=== PATIENT | female | born 1965 | race Caucasian/White ===

== ENCOUNTER 2022-02-14 16:26 | Emergency (ER) | payer BC, SELFPAY ==
[2022-02-14 17:24] VITALS: BP 132/89; PULSE 77; RESP 18; TEMP 36.1; O2SAT 99; BMI 16.4
--- NOTE | 2022-02-14 17:26 | CRLHL7_ITS ---
For Patients: As a result of the Cures Act, medical imaging exams and procedure reports are released immediately into your electronic medical record. You may view this report before your referring provider. If you have questions, please contact your health care provider. Indication: Left 2nd toe injury Comparison: None available. Technique: AP and lateral views left 2nd digit were obtained. Findings: There is a minimally displaced fracture of the distal aspect of the proximal 2nd phalanx. The joint spaces are grossly preserved. There is mild fusiform soft tissue swelling. Impression: Minimally displaced fracture of the distal aspect of the proximal 2nd phalanx Dictated by Harrison Villaseñor MD @ 02/14/2022 6:12:22 PM (Electronically Signed)
--- NOTE | 2022-02-14 19:28 | ED_ITS ---
HPI - Trauma General Time Seen by Provider: 19:00 Date Seen: 02/14/22 Chief Complaint: Extremity Pain/Injury, Lower Stated Complaint: Broken Toe Time Seen by Provider: 02/14/22 18:40 Source: patient, RN notes reviewed and old records reviewed Mode of arrival: ambulatory Limitations: no limitations History of Present Illness HPI narrative: Patient is a very pleasant 56-year-old female who presents to the emergency room after injuring her good left 2nd toe. Patient states that she wanted to hurry out to the [facility] and was caring a cooler and wearing flip-flops and her flip-flop turned and she somehow got her 2nd toe caught. She notes initially the 2nd toe seemed to be bending toward the great toe but has straightened out somewhat. She states that she feels like it is sticking up from her foot. She describes her pain as significant and is worsened by any sort of movement or touching of the toe. She points to the PIP joint of the 2nd toe as area of greatest pain but the pain does radiate onto the dorsum of her foot. She denies any other injury. Related Data Home Medications Medication Instructions Recorded Confirmed methimazole 5 mg tablet mg 02/14/22 Allergies Allergy/AdvReac Type Severity Reaction Status Date / Time morphine Allergy Verified 02/14/22 17:23 Sulfa (Sulfonamide Allergy Verified 02/14/22 17:23 Antibiotics) augmentin Allergy Uncoded 02/14/22 17:23 Review of Systems Narrative: Patient denies any other injury or prodromal symptoms associated with the stumble in the flip-flops. Exam Const: Vital Signs, click to edit/add: Vital Signs - 24 hr 02/14/22 17:24 Temperature 96.9 F L Pulse Rate [Right Pulse Oximeter] 77 Respiratory Rate 18 Blood Pressure [Ri ght Upper Arm] 132/89 Pulse Oximetry 99 Patient is alert and oriented. She does appear to be in discomfort. She is breathing normally and does not appear to have suffered any other injury to her head neck upper extremities. She has a well-healed scar over her right shoulder. Examination of her left foot shows that her 2nd toe is somewhat ed ematous with some ecchymosis mainly on the plantar surface. There is some slight deviation anteriorly and to the midline or medially. Sensation is fully intact. There is no evidence of skin compromise. No wounds of the ankle knee or legs. Course Course Hospital Course: Patient appears to have fracture of the proximal phalanx 2nd toe. I did consult with dab from Orthopedics who does suggest digital block with reduction of the fracture. I speak with the patient and obtained informed consent after discussing risks and benefits. Reevaluation(s) Reevaluation #1: I did receive informed consent for reduction of slightly displaced 2nd toe fract ure. Patient tolerated procedure well. 1% lidocaine was used to numb base of 2nd toe on the left after alcohol cleansing. Digital block accomplished after initial numbing of the skin. Patient achieved anesthesia. Traction was placed on the 2nd toe and toe was realigned with good outcome. Toe was antoine-taped. Vital Signs Vital signs: Initial Vital Signs Temperature 96.9 F L 02/14/22 17:24 Temperature Source Temporal Artery Scan 02/14/22 17:24 Pulse Rate 77 02/14/22 17:24 Respiratory Rate 18 02/14/22 17:24 Blood Pressure 132/89 02/14/22 17:24 Blood Pressure Mean 103 02/14/22 17:24 Blood Pressure Position Sitting 02/14/22 17:24 Pulse Oximetry 99 02/14/22 17:24 Oxygen Delivery Method 02/14/22 17:24 Vital Signs Temperature 96.9 F L 02/14/22 17:24 Pulse Rate 77 02/14/22 17:24 Respiratory Rate 18 02/14/22 17:24 Blood Pressure 132/89 02/14/22 17:24 Pulse Oximetry 99 02/14/22 17:24 Temperature 96.9 F L 02/14/22 17:24 Pulse Rate 77 02/14/22 17:24 Respiratory Rate 18 02/14/22 17:24 Blood Pressure 132/89 02/14/22 17:24 Pulse Oximetry 99 02/14/22 17:24 MDM - Trauma MDM Narrative Medical decision making narrative: 1. 2nd toe fracture left foot-patient had some discuss placement of the fracture ends and after digital block we were able to reduce the slight dorsal displacement and medial deviation. Toe was antoine-taped. Patient will be placed in a wooden shoe and given crutches. For pain may use ibuprofen or Tylenol. Small amount of oxycodone 5 mg may be used as well. This is via [employer] [facility]. 5 mg 1 tablet p.o. q.4-6 hours p.r.n. 10. With no refills. Follow-up with orthopedics next week for recheck. No work until cleared by Orthopedics. 2. Disposition-home. Return as needed to the emergency room. Imaging Data Toes x-ray: Attestation: I have reviewed the pertinent imaging results. My impression: Fracture of the distal aspect of the proximal phalanx. There is some slight anterior displacement. Radiologist's impression: Minimal displacement of the distal aspect of the toe secondary to proximal phalanx fracture/distal aspect. Discharge Plan Discharge Clinical Impression: Closed fracture of second toe of left foot Patient Disposition: Home, Self-Care Condition: Improved Additional Instructions: Recommend using the wooden shoe to prevent bending of the toe. Recommend using crutches for walking assistance. Icing of the toe is acceptable. Ibuprofen or Tylenol as needed for discomfort. Use oxycodone sparingly Follow-up with Orthopedics next week for recheck. The phone number for appointment is [phone] Return to the emergency room as needed Prescriptions: No Action methimazole 5 mg tablet 0RF Label Comments: TAKE 1 TABLET BY MOUTH EVERY OTHER DAY Follow Up/Referrals: Zay Berumen MD [Primary Care Provider] - Stand Alone Forms: [email or web address] Info Instructions
--- NOTE | 2022-02-14 20:25 | ED.NURSE ---
pt fitted with post op shoe. pt declined crutches. pt given work note.
[2022-02-14] MEDS: LIDOCAINE 1% 20 ML VIAL INJECTION (20:29)
== END 2022-02-14 20:30 | disposition home or self-care (01) ==
PROVIDERS: Emergency Provider Family Medicine; PCP Surgery; Visit Provider Surgery
DX: S92.512A Displaced fracture of proximal phalanx of left lesser toe(s), initial encounter for closed fracture (principal); W22.8XXA Striking against or struck by other objects, initial encounter
CPT/HCPCS: 28515; 73660; 99283; 99284

== ENCOUNTER 2022-05-27 13:47 | Outpatient (CLI) | payer BC, SELFPAY ==
--- NOTE | 2022-05-27 13:40 | CRLHL7_ITS ---
For Patients: As a result of the Cures Act, medical imaging exams and procedure reports are released immediately into your electronic medical record. You may view this report before your referring provider. If you have questions, please contact your health care provider. BILATERAL DIGITAL SCREENING MAMMOGRAM WITH COMPUTER-AIDED DETECTION WITH TOMOSYNTHESIS CLINICAL HISTORY: Routine screening exam. COMPARISON: 05/07/2021, 04/27/2019, 03/25/2018. TECHNIQUE: Digital mammogram in CC and MLO projections including computer-aided detection (CAD) and tomosynthesis. BREAST COMPOSITION: The breasts are extremely dense, which lowers the sensitivity of mammography. FINDINGS: RIGHT Breast: No suspicious findings. LEFT Breast: Focal nodular density 2 cm from the nipple lateral aspect. No distortion. IMPRESSION: LEFT breast asymmetry/mass. RECOMMENDATIONS: LEFT breast ultrasound recommended. The [facility] will contact the patient for follow-up. BI-RADS Category 0: Incomplete: Need Additional Imaging Evaluation and/or Prior Mammograms for Comparison. Dictated by Mariano Mar MD @ 05/28/2022 8:28:53 AM PT/Dictated by: Mariano Mar MD @ 05/28/2022 8:28:00 AM (Electronically Signed)
== END 2022-05-27 13:48 | disposition home or self-care (01) ==
LOC: MAMMO 13:47
PROVIDERS: PCP Surgery; Visit Provider Surgery
DX: Z12.31 Encounter for screening mammogram for malignant neoplasm of breast (principal); N63.20 Unspecified lump in the left breast, unspecified quadrant; R92.2 Inconclusive mammogram
CPT/HCPCS: 77063; 77067

== ENCOUNTER 2022-06-03 11:11 | Outpatient (CLI) | payer BC, SELFPAY ==
--- NOTE | 2022-06-03 11:15 | CRLHL7_ITS ---
For Patients: As a result of the Cures Act, medical imaging exams and procedure reports are released immediately into your electronic medical record. You may view this report before your referring provider. If you have questions, please contact your health care provider. LEFT BREAST ULTRASOUND INDICATION: Follow-up a LEFT breast asymmetry identified on a recent mammogram 05/27/2022. TECHNIQUE: Directed LEFT breast ultrasound with this radiologist present. COMPARISON: Correlation is made with a mammogram 05/27/2022. FINDINGS: At the 4 o`clock position 2 cm from the nipple is a well-circumscribed 4 mm cyst. There may be minimal internal debris. This is benign. These findings were discussed with the patient. Annual mammography is recommended. IMPRESSION: 4 mm LEFT breast cyst 4 o`clock position 2 cm from the LEFT nipple. Annual mammography is recommended. BI-RADS Category 2: Benign A lay language report of this examination will be provided to the patient. Dictated by: Yong Perkins MD @06/03/2022 12:20:53 PM [email or web address]/Dictated by: Yong Perkins MD @ 06/03/2022 12:20:00 PM (Electronically Signed)
== END 2022-06-03 11:12 | disposition home or self-care (01) ==
LOC: US 11:11
PROVIDERS: PCP Surgery; Visit Provider Surgery
DX: N63.20 Unspecified lump in the left breast, unspecified quadrant (principal); R92.8 Other abnormal and inconclusive findings on diagnostic imaging of breast
CPT/HCPCS: 76642

== ENCOUNTER 2023-01-27 14:09 | Emergency (ER) | payer BC, SELFPAY ==
[2023-01-27 14:13] VITALS: BP 147/111; PULSE 94; RESP 16; TEMP 37.1; O2SAT 99; BMI 16.1
--- NOTE | 2023-01-27 14:31 | ED_ITS ---
HPI - Eye Problem General Time Seen by Provider: 14:31 <Zita Otoole MD - Last Filed: 01/27/23 16:23> Date Seen: 01/27/23 <Zita Otoole MD - Last Filed: 01/27/23 16:23> Chief complaint: Eye Problems <Zita Otoole MD - Last Filed: 01/27/23 16:23> Stated complaint: Blood Splatter in Eye <Zita Otoole MD - Last Filed: 01/27/23 16:23> Time Seen by Provider: 01/27/23 14:31 <Zita Otoole MD - Last Filed: 01/27/23 16:23> Source: patient, RN notes reviewed and old records reviewed <Zita Otoole MD - Last Filed: 01/27/23 16:23> Mode of arrival: ambulatory <Zita Otoole MD - Last Filed: 01/27/23 16:23> Limitations: no limitations <Zita Otoole MD - Last Filed: 01/27/23 16:23> History of Present Illness HPI Narrative: Patient is a very pleasant 57-year-old female previously healthy and vaccinated for hepatitis-B in 1992 who comes to the emergency room after a blood exposure at work. 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 Patient notes that she was collecting the blood and the end of the glucose strips flicked off propelling droplets of blood into her left eye. She immediately wiped the blood from her eyelash and irrigated her eye at least 4-5 minutes. She continued to repeat the irrigation and cleaning after that. She was not relieved from work until early this afternoon and then came here to the emergency room. Notes that her eye feels a little bit different but she is able to read and has no loss of vision. She herself has no history of HIV or hepatitis. In regards to the source patient this is person has been institutionalized for decades. She does not know of his HIV or hepatitis status. Unfortunately today is a holiday and they were unable to reach supervisors. She was able to reach her H our team by phone number but they did not provider with any paperwork. They merely Center to the ER. Patient is receptive to being tested for hepatitis and HIV at this time. This is a worker's comp visit. <Zita Otoole MD - Last Filed: 01/27/23 16:23> Related Data Home medications: Home Medications Medication Instructions Recorded Confirmed methocarbamol 500 mg tablet 500 mg PO Q6H PRN 02/18/22 01/27/23 methimazole 5 mg tablet 5 mg PO QDAY 06/23/22 01/27/23 Previous Rx's Medication Instructions Recorded estradiol 0.01% (0.1 mg/gram) 1 g vaginal 2XW #42.5 grams 12/10/22 vaginal cream (Estrace) <Zita Otoole MD - Last Filed: 01/27/23 16:23> Allergies/adverse reactions: Allergies Allergy/AdvReac Type Severity Reaction Status Date / Time amoxicillin Allergy Verified 01/27/23 14:17 morphine Allergy Verified 01/27/23 14:17 Sulfa (Sulfonamide Allergy Verified 01/27/23 14:17 Antibiotics) gabapentin AdvReac Unknown oral thrush Verified 01/27/23 14:17 Clavulanate Allergy Unknown Uncoded 12/10/22 11:19 augmentin Allergy Uncoded 12/10/22 11:19 <Zita Otoole MD - Last Filed: 01/27/23 16:23> Review of Systems Status of ROS: Reports: 6 or more systems reviewed and unremarkable except as noted in History and below <Zita Otoole MD - Last Filed: 01/27/23 16:23> Const: Denies: fever <Zita Otoole MD - Last Filed: 01/27/23 16:23> Eyes: Denies: change in vision or blurry vision <Zita Otoole MD - Last Filed: 01/27/23 16:23> [facility] Medical History: Medical History Skin cancer ?C44.90 - Unspecified malignant neoplasm of skin, unspecified (ICD-10) Fusion of spine, 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 - Fusion of spine, cervical region (ICD-10) Arthritis ?M19.90 - Unspecified osteoarthritis, unspecified site (ICD-10) Skin problem ?L98.9 - Disorder of the skin and subcutaneous tissue, unspecified (ICD-10) Thyroid activity decreased ?E03.9 - Hypothyroidism, unspecified (ICD-10) <Zita Otoole MD - Last Filed: 01/27/23 16:23> Surgical History: Surgical History History of appendectomy ?Z90.49 - Acquired absence of other specified parts of digestive tract (ICD- 10) <Zita Otoole MD - Last Filed: 01/27/23 16:23> Social History: Social History Smoking Status: Current every day smoker What tobacco products do you use: cigarettes Smoking packs per day: 0.5 Smoking cigarettes per day: 10.0 Do you use any of these nicotine containing products: None Second hand tobacco smoke exposure: No How often do you have a drink containing alcohol: never AUDIT-C Alcohol total score: 0 Non-prescribed substance use: marijuana (any form) Non-prescribed substance use details: occasionally service: No <Zita Otoole MD - Last Filed: 01/27/23 16:23> Exam Narrative: Exam Narrative: Patient is alert and oriented. Very pleasant woman. Clearly frustrated. EOM is full. No erythema around the eyelid or scleral injection. Heart no respiratory distress. <Zita Otoole MD - Last Filed: 01/27/23 16:23> Const: Vital Signs, click to edit/add: Vital Signs - 24 hr 01/27/23 14:13 01/27/23 16:33 Temperature 98.8 F Pulse Rate [Pulse Oximeter] 94 61 Respiratory Rate 16 16 Blood Pressure [Ri ght Upper Arm] 147/111 H 132/97 H Pulse Oximetry 99 98 Oxygen Delivery Me thod Room Air Room Air <Zita Otoole MD - Last Filed: 01/27/23 16:23> Vital Signs, click to edit/add: Vital Signs - 24 hr 01/27/23 14:13 01/27/23 16:33 Temperature 98.8 F Pulse Rate [Pulse Oximeter] 94 61 Respiratory Rate 16 16 Blood Pressure [Ri ght Upper Arm] 147/111 H 132/97 H Pulse Oximetry 99 98 Oxygen Delivery Me thod Room Air Room Air <Garrick Good MD - Last Filed: 01/27/23 16:41> Documenting provider has reviewed patient's vital signs: yes <Zita Otoole MD - Last Filed: 01/27/23 16:23> Course Course Hospital Course: At this time patient is not a member of our organization and therefore do not have post exposure paperwork for her but we will follow what we would normally do at the hospital. First we will draw an exposure panel which includes HIV and hepatitis. I will then speak to the post exposure prophylaxis hotline <Zita Otoole MD - Last Filed: 01/27/23 16:23> Reevaluation(s) Reevaluation #1: I spoke with patient initially regarding HIV. Patient that she was exposed to appears to be low risk as he has been in this particular correction for 12 years and has been hospitalized/institutionalized for many years. No previous history of hepatitis or HIV to her knowledge. Unfortunately there are no staff members present today and she would be unable to ascertain this until tomorrow. I advised her to do so. At this time I do not advise use of anti viral medication for HIV after speaking to the pep hotline as toxicity of the medications do appeared outweigh the risks. Conversion at this time is 0.9% with a large blood exposure. Patient was immunized in 1992. After discussion with pep hotline they do expect waning of the tighter even though patient may still have some immunity. <Zita Otoole MD - Last Filed: 01/27/23 16:23> Vital Signs Vital signs: Initial Vital Signs Temperature 98.8 F 01/27/23 14:13 Temperature Source Temporal Artery Scan 01/27/23 14:13 Pulse Rate 94 01/27/23 14:13 Pulse Rhythm Regular 01/27/23 14:13 Pulse Strength 3+ Normal 01/27/23 14:13 Respiratory Rate 16 01/27/23 14:13 Blood Pressure 147/111 H 01/27/23 14:13 Blood Pressure Mean 123 H 01/27/23 14:13 Blood Pressure Position Sitting 01/27/23 14:13 Pulse Oximetry 99 01/27/23 14:13 Oxygen Delivery Method Room Air 01/27/23 14:13 Vital Signs Temperature 98.8 F 01/27/23 14:13 Pulse Rate 94 01/27/23 14:13 Respiratory Rate 16 01/27/23 14:13 Blood Pressure 147/111 H 01/27/23 14:13 Pulse Oximetry 99 01/27/23 14:13 Oxygen Delivery Method Room Air 01/27/23 14:13 Temperature 98.8 F 01/27/23 14:13 Pulse Rate 61 01/27/23 16:33 Respiratory Rate 16 01/27/23 16:33 Blood Pressure 132/97 H 01/27/23 16:33 Pulse Oximetry 98 01/27/23 16:33 Oxygen Delivery Method Room Air 01/27/23 16:33 <Zita Otoole MD - Last Filed: 01/27/23 16:23> Initial Vital Signs Temperature 98.8 F 01/27/23 14:13 Temperature Source Temporal Artery Scan 01/27/23 14:13 Pulse Rate 94 01/27/23 14:13 Pulse Rhythm Regular 01/27/23 14:13 Pulse Strength 3+ Normal 01/27/23 14:13 Respiratory Rate 16 01/27/23 14:13 Blood Pressure 147/111 H 01/27/23 14:13 Blood Pressure Mean 123 H 01/27/23 14:13 Blood Pressure Position Sitting 01/27/23 14:13 Pulse Oximetry 99 01/27/23 14:13 Oxygen Delivery Method Room Air 01/27/23 14:13 Vital Signs Temperature 98.8 F 01/27/23 14:13 Pulse Rate 94 01/27/23 14:13 Respiratory Rate 16 01/27/23 14:13 Blood Pressure 147/111 H 01/27/23 14:13 Pulse Oximetry 99 01/27/23 14:13 Oxygen Delivery Method Room Air 01/27/23 14:13 Temperature 98.8 F 01/27/23 14:13 Pulse Rate 61 01/27/23 16:33 Respiratory Rate 16 01/27/23 16:33 Blood Pressure 132/97 H 01/27/23 16:33 Pulse Oximetry 98 01/27/23 16:33 Oxygen Delivery Method Room Air 01/27/23 16:33 <Garrick Good MD - Last Filed: 01/27/23 16:41> MDM - Eye Problem MDM Narrative Medical decision making narrative: 1. Post body fluid exposure-patient had blood go into her eye. She irrigated it well. At this time we are waiting on some parts of the post exposure panel. First we are waiting on HIV. There is a low likelihood whether this source has HIV. Therefore will not pursue any medications as toxicity of the medications according to the pep hotline outweigh the benefits. In regards to hepatitis patient did have hepatitis vaccination in 1992. There is concern regarding weaning immunity. The advice from the pep hotline is that if the surface antibody titer is greater than 10 this SIRS as proof of immunity and no further treatment is necessary. However, if patient has it tighter of less than 10 the recommendation is a dose of hepatitis-B vaccination within 24 hours. The IgG that we would be given if the source patient comes back as positive for hepatitis-B. This can be given within 7 days of exposure. 2. Disposition- this patient will be signed out my partner Dr. Good. Various scenarios: If patient has a surface antibody titer greater than 10 no further immunization needs to be done. If patient has a titer less than 10 patient will receive a dose of hepatitis-B vaccination. However, we do not need to follow-up with the IgG unless the source patient has a positive active case. Patient will follow-up with her staff and hopefully will be able to ascertain patient's HIV and hepatitis status by records. I do recommend a blood draw if possible. Patient will need to follow up in 4-8 weeks for recheck of HIV and if receiving hepatitis-B vaccination today a titer for proof of immunity. <Zita Otoole MD - Last Filed: 01/27/23 16:23> 1. Post body fluid exposure-patient had blood go into her eye. She irrigated it well. At this time we are waiting on some parts of the post exposure panel. First we are waiting on HIV. There is a low likelihood whether this source has HIV. Therefore will not pursue any medications as toxicity of the medications according to the pep hotline outweigh the benefits. In regards to hepatitis patient did have hepatitis vaccination in 1992. There is concern regarding weaning immunity. The advice from the pep hotline is that if the surface antibody titer is greater than 10 this SIRS as proof of immunity and no further treatment is necessary. However, if patient has it tighter of less than 10 the recommendation is a dose of hepatitis-B vaccination within 24 hours. The IgG that we would be given if the source patient comes back as positive for hepatitis-B. This can be given within 7 days of exposure. 2. Disposition- this patient will be signed out my partner Dr. Good. Various scenarios: If patient has a surface antibody titer greater than 10 no further immunization needs to be done. If patient has a titer less than 10 patient will receive a dose of hepatitis-B vaccination. However, we do not need to follow-up with the IgG unless the source patient has a positive active case. Patient will follow-up with her staff and hopefully will be able to ascertain patient's HIV and hepatitis status by records. I do recommend a blood draw if possible. Patient will need to follow up in 4-8 weeks for recheck of HIV and if receiving hepatitis-B vaccination today a titer for proof of immunity. Results returned with HIV being negative. Her hepatitis-B surface antibody titer is indeterminate so the patient did receive a hepatitis B vaccination. If the source is positive for hepatitis B the patient will need IgG also within [address] Klaus Good <Garrick Good MD - Last Filed: 01/27/23 16:41> Medical Records Attestation: I reviewed the patient's medical records. <Zita Otoole MD - Last Filed: 01/27/23 16:23> Lab Data Attestation: I reviewed the patient's lab results. <Zita Otoole MD - Last Filed: 01/27/23 16:23> Labs: Lab Results 01/27/23 Range/Units 14:57 Hep Bs Antibody Indeterminate (Negative) Hepatitis C Antibody Negative (Negative) HIV 1&2 Ab/P24 Ag 4thGn Negative (Negative) <Zita Otoole MD - Last Filed: 01/27/23 16:23> Lab Results 01/27/23 Range/Units 14:57 Hep Bs Antibody Indeterminate (Negative) Hepatitis C Antibody Negative (Negative) HIV 1&2 Ab/P24 Ag 4thGn Negative (Negative) <Garrick Good MD - Last Filed: 01/27/23 16:41> Discharge Plan Discharge Clinical Impression: Exposure to blood <Zita Otoole MD - Last Filed: 01/27/23 16:23> Patient Disposition: Home, Self-Care <Zita Otoole MD - Last Filed: 01/27/23 16:23> Condition: Unchanged <Zita Otoole MD - Last Filed: 01/27/23 16:23> Additional Instructions: Follow-up with your primary MD Dr. Berumen once you learn of your patient has HIV and hepatitis status. It would be helpful if they could draw his blood to confirm a status. If your gentleman is HIV or hepatitis positive please see your primary for further evaluation and medications. Today your HIV is negative Today your hepatitis surface antigen is indeterminate so you received a Hepatitis B Vaccine. If the source is positive for Hepatitis B, you will need IGG within 7 days. You will need to recheck your HIV in 48 weeks with your primary MD. If you received the hepatitis vaccination today you will need to check your hepatitis immunity as well. Return to the emergency room as needed. Dr Otoole wanted you to have the post exposure prophylaxis hotline <Zita Otoole MD - Last Filed: 01/27/23 16:23> Prescriptions: No Action methocarbamol 500 mg tablet 500 mg PO Q6H PRN estradiol [Estrace] 0.01 % (0.1 mg/gram) cream 1 g vaginal 2XW Qty: 42.5 3RF methimazole 5 mg tablet 5 mg PO QDAY Patient Comments: TAKE 1 TABLET BY MOUTH EVERY OTHER DAY <Zita Otoole MD - Last Filed: 01/27/23 16:23> Follow Up/Referrals: Zay Berumen MD [Primary Care Provider] - <Zita Otoole MD - Last Filed: 01/27/23 16:23> Stand Alone Forms: [employer] Info Instructions <Zita Otoole MD - Last Filed: 01/27/23 16:23>
[2023-01-27 16:20] LABS: HIV 1/2/P24 Combo Screen* Negative (Negative)
[2023-01-27 16:26] LABS: Hepatitis B Surface Antibody* Indeterminate (Negative)
[2023-01-27 16:27] LABS: Hepatitis C Virus Antibody* Negative (Negative)
[2023-01-27 16:33] VITALS: BP 132/97; PULSE 61; RESP 16; O2SAT 98
--- NOTE | 2023-01-27 17:18 | ED.NURSE ---
Patient recieved Hepatits B Vaccine 20mcg IM in left deltoid. Patient tolerated well and had no further questions. VIS sheet provided. ordered 10mcg initially but wanted to change the dose to 20mcg which is an adult dose. This computer system would not allow Dr. Good to make this change. Written order provided by Dr. Latisha ANDREWS. Verified dose, route, medication second RNNoa
== END 2023-01-27 17:21 | disposition home or self-care (01) ==
PROVIDERS: Emergency Provider Family Medicine; PCP Surgery
DX: H57.9 Unspecified disorder of eye and adnexa (principal); Z77.21 Contact with and (suspected) exposure to potentially hazardous body fluids; Z23 Encounter for immunization
CPT/HCPCS: 36415; 86703; 86706; 86803; 90471; 90744; 96372; 99283

== ENCOUNTER 2023-06-12 09:41 | Outpatient (CLI) | payer BC, SELFPAY ==
--- NOTE | 2023-06-12 09:45 | CRLHL7_ITS ---
For Patients: As a result of the Century Cures Act, medical imaging exams and procedure reports are released immediately into your electronic medical record. You may view this report before your referring provider. If you have questions, please contact your health care provider. BILATERAL DIGITAL SCREENING MAMMOGRAM WITH TOMOSYNTHESIS AND COMPUTER-AIDED DETECTION CLINICAL HISTORY: Routine screening exam. COMPARISON: 05/27/2022, 05/07/2021, 04/27/2019 TECHNIQUE: Digital mammogram in CC and MLO projections including computer-aided detection (CAD). Tomosynthesis utilized. BREAST COMPOSITION: The breasts are extremely dense, which lowers the sensitivity of mammography. FINDINGS: RIGHT Breast: No suspicious findings. LEFT Breast: Nodular density within the lower outer quadrant 1 cm from the nipple. IMPRESSION: LEFT breast asymmetry/mass. RECOMMENDATIONS: Additional mammographic views of the LEFT breast including 3D spot compression CC/MLO. LEFT breast ultrasound may also be required. BI-RADS Category 0: Incomplete: Need Additional Imaging Evaluation and/or Prior Mammograms for Comparison [facility] will contact the patient for follow-up. A lay language report of this examination will be provided to the patient. Dictated by Mariano Mar MD @ 06/12/2023 11:56:31 AM jj/Dictated by: Mariano Mar MD @ 06/12/2023 11:56:00 AM (Electronically Signed)
== END 2023-06-12 09:42 | disposition home or self-care (01) ==
LOC: MAMMO 09:42
PROVIDERS: PCP Surgery; Visit Provider Surgery
DX: Z12.31 Encounter for screening mammogram for malignant neoplasm of breast (principal); N63.20 Unspecified lump in the left breast, unspecified quadrant
CPT/HCPCS: 77063; 77067

== ENCOUNTER 2023-06-24 09:26 | Outpatient (CLI) | payer BC, SELFPAY ==
--- NOTE | 2023-06-24 09:45 | CRLHL7_ITS ---
For Patients: As a result of the Cures Act, medical imaging exams and procedure reports are released immediately into your electronic medical record. You may view this report before your referring provider. If you have questions, please contact your health care provider. DIGITAL DIAGNOSTIC LEFT MAMMOGRAM USING TOMOSYNTHESIS AND COMPUTER-AIDED DETECTION LEFT BREAST ULTRASOUND INDICATION: Follow up an enlarging nodule in the mid outer to lower outer quadrant of the LEFT breast. TECHNIQUE: Spot compression view of the LEFT breast in the CC and MLO projection. Digital breast tomosynthesis utilized interpretation. COMPARISON: 06/12/2023, 05/27/2022. MAMMOGRAM: FINDINGS: Enlarging nodule mid lower outer quadrant LEFT breast between 3 and 4 o`clock position. This was documented to represent a small cyst on a prior LEFT breast ultrasound 06/03/2022. Ultrasound is recommended for further evaluation and will be performed subsequently. IMPRESSION: Persistent enlarging nodule mid lower outer quadrant LEFT breast. Ultrasound is recommended. ULTRASOUND: TECHNIQUE: Directed LEFT breast ultrasound with this radiologist present. The LEFT breast is carefully scanned between the 3 and 4 o`clock position with this radiologist present. COMPARISON: 06/03/2022. FINDINGS: Simple cyst 4 o`clock position 1 cm from the nipple measuring 8 x 5 x 7 mm. Previously this measured 4 mm. These findings were discussed briefly with the patient. Annual mammography is recommended. IMPRESSION: 8 x 5 x 7 mm simple cyst 4 o`clock position 1 cm from the nipple. Annual mammography recommended. BI-RADS Category 2: Benign A lay language report of this examination will be provided to the patient. Dictated by: Yong Prekins MD @06/24/2023 10:20:25 AM /Dictated by: Yong Perkins MD @ 06/24/2023 10:19:00 AM (Electronically Signed)
--- NOTE | 2023-06-24 10:15 | CRLHL7_ITS ---
For Patients: As a result of the Cures Act, medical imaging exams and procedure reports are released immediately into your electronic medical record. You may view this report before your referring provider. If you have questions, please contact your health care provider. PLEASE SEE DIGITAL DIAGNOSTIC LEFT MAMMOGRAM PERFORMED SAME DAY [email or web address] chu/Dictated by: Yong Perkins MD @ 06/24/2023 10:20:00 AM (Electronically Signed)
== END 2023-06-24 09:27 | disposition home or self-care (01) ==
LOC: MAMMO 09:26
PROVIDERS: PCP Surgery; Visit Provider Surgery
DX: N63.20 Unspecified lump in the left breast, unspecified quadrant (principal); R92.8 Other abnormal and inconclusive findings on diagnostic imaging of breast
CPT/HCPCS: 76642; 77065; G0279

== ENCOUNTER 2024-06-16 09:41 | Outpatient (CLI) | payer BC, SELFPAY ==
--- NOTE | 2024-06-16 09:45 | CRLHL7_ITS ---
For Patients: As a result of the Century Cures Act, medical imaging exams and procedure reports are released immediately into your electronic medical record. You may view this report before your referring provider. If you have questions, please contact your health care provider. BILATERAL SCREENING MAMMOGRAM WITH COMPUTER-AIDED DETECTION AND TOMOSYNTHESIS TECHNIQUE: CC and MLO views were obtained. These mammographic images have been obtained using full-field digital technique. These mammographic images were interpreted with the benefit of computer-aided detection. Breast Tomosynthesis was used in this interpretation. COMPARISON FILM: 06/12/23. FINDINGS: The breasts are heterogeneously dense, which may obscure small masses IMPRESSION: There is no radiographic evidence for malignancy. ASSESSMENT: BI-RADS Category 2: Benign RECOMMENDATION: Routine screening mammogram in 1 year. A lay language report of this examination will be provided to the patient. Mariano Mar M.D. Diagnostic Radiologist [email or web address] Transcribed: 2:00 [email or web address] chu/Dictated by: Mariano Mar MD @ 06/16/2024 11:45:00 AM (Electronically Signed)
== END 2024-06-16 09:42 | disposition home or self-care (01) ==
LOC: MAMMO 09:42
PROVIDERS: PCP Surgery; Visit Provider Surgery
DX: Z12.31 Encounter for screening mammogram for malignant neoplasm of breast (principal); R92.333 Mammographic heterogeneous density, bilateral breasts
CPT/HCPCS: 77063; 77067